=== PATIENT | female | born 1990 | race Caucasian/White ===

== ENCOUNTER 2017-09-08 12:08 | Outpatient (CLI) | payer OTHER ==
[2017-09-08 14:13] LABS: ADD MAN DIFF? NO
[2017-09-08 14:15] LABS: BASOPHILS % 0.1 % (0.0-2.0); EOSINOPHILS % 0.2 % (0.0-7.0); HEMOGLOBIN 11.9 g/dl (12.0-16.0); LYMPHOCYTES % 11.6 % (15.0-51.0); MEAN CORPUSCULAR HEMOGLOBIN 34.6 pg (29.0-33.0); MEAN CORPUSCULAR HGB CONC 36.1 g/dl (32.0-37.0); MEAN CORPUSCULAR VOLUME 95.9 fl (82.0-101.0); MONOCYTE # 0.6 10^3/ul (0.3-0.9); MONOCYTES % 6.5 % (0.0-11.0); NEUTROPHIL # 7.2 10^3/ul (1.6-7.5); NEUTROPHILS % 80.6 % (39.0-77.0); PLATELET COUNT 194 10^3/UL (140-415); RED BLOOD COUNT 3.44 10^6/ul (4.20-5.40); RED CELL DISTRIBUTION WIDTH 13.2 % (11.5-14.5)
[2017-09-08 14:15] LABS: WHITE BLOOD COUNT 8.9 10^3/ul (4.8-10.8)
[2017-09-08 14:55] LABS: ADD UMIC NO; UR ASCORBIC ACID NEGATIVE (NEGATIVE); UR BILIRUBIN (Dip) NEGATIVE (NEGATIVE); UR BLOOD (Dip) NEGATIVE (NEGATIVE); UR CLARITY SLIGHTLY CLOUDY (CLEAR); UR COLOR YELLOW (YELLOW); UR GLUCOSE (Dip) NEGATIVE (NEGATIVE); UR KETONES (Dip) NEGATIVE (NEGATIVE); UR LEUKOCYTE ESTERASE (Dip) NEGATIVE Leu/ul (NEGATIVE); UR NITRITE (Dip) NEGATIVE (NEGATIVE); UR RBC 0 /HPF (0-5); UR SPECIFIC GRAVITY (Dip) 1.013 (1.003-1.030); UR TOTAL PROTEIN (Dip) NEGATIVE (NEGATIVE); UR UROBILINOGEN (Dip) NEGATIVE (NEGATIVE); UR WBC 1 /HPF (0-5)
[2017-09-08 15:11] LABS: RUPTURE FETAL MEMBRANES NEGATIVE (NEGATIVE)
== END 2017-09-08 15:43 | disposition home or self-care (01) ==
LOC: OBT 12:08 → L-D 12:09 → OBT 15:43
DX: O26.893 Other specified pregnancy related conditions, third trimester (principal); Z3A.36 36 weeks gestation of pregnancy
CPT/HCPCS: 76818; 81001; 81003; 84112; 85025; 87086

== ENCOUNTER 2017-09-23 16:42 | Outpatient (CLI) | payer OTHER | END 2017-09-23 18:35 | disposition home or self-care (01) | LOC: OBT 16:42 → L-D 16:43 → OBT 18:35 | DX: O41.03X0 Oligohydramnios, third trimester, not applicable or unspecified (principal); Z3A.38 38 weeks gestation of pregnancy | CPT/HCPCS: 76818 ==

== ENCOUNTER 2017-09-27 05:57 | Inpatient (IN) | payer OTHER ==
[2017-09-27] MEDS ORDERED: CARBOPROST 250 MCG INJ IM ×2 (06:30→15:30)
[2017-09-27] MEDS ORDERED: MISOPROSTOL 200 MCG TAB PR ×2 (06:30→15:30)
[2017-09-27] MEDS ORDERED: OXYTOCIN 30 UNITS/LR 500 ML IV ×2 (06:30→15:30)
[2017-09-27] MEDS ORDERED: METHYLERGONOVINE 0.2 MG INJ IM ×2 (06:30→15:30)
[2017-09-27 06:48] LABS: ADD MAN DIFF? NO
[2017-09-27 06:57] LABS: BASOPHILS % 0.2 % (0.0-2.0); EOSINOPHILS % 0.3 % (0.0-7.0); HEMATOCRIT 36.1 % (37.0-47.0); HEMOGLOBIN 12.7 g/dl (12.0-16.0); LYMPHOCYTES # 1.2 10^3/ul (0.8-2.9); MEAN CORPUSCULAR HEMOGLOBIN 34.5 pg (29.0-33.0); MEAN CORPUSCULAR HGB CONC 35.2 g/dl (32.0-37.0); MEAN CORPUSCULAR VOLUME 98.1 fl (82.0-101.0); MEAN PLATELET VOLUME 11.1 fl (7.4-10.4); MONOCYTE # 0.6 10^3/ul (0.3-0.9); MONOCYTES % 6.8 % (0.0-11.0); NEUTROPHIL # 6.7 10^3/ul (1.6-7.5); NEUTROPHILS % 77.8 % (39.0-77.0); PLATELET COUNT 205 10^3/UL (140-415); RED BLOOD COUNT 3.68 10^6/ul (4.20-5.40); RED CELL DISTRIBUTION WIDTH 13.1 % (11.5-14.5)
[2017-09-27 06:57] LABS: WHITE BLOOD COUNT 8.6 10^3/ul (4.8-10.8)
[2017-09-27 07:20] LABS: INR 1.09; PROTIME 14.3 Sec (11.9-14.9); PT RATIO 1.1
[2017-09-27 07:21] LABS: PARTIAL THROMBOPLASTIN TIME 31.4 Sec (25.0-35.0)
[2017-09-27 07:47] LABS: HEPATITIS B SURFACE ANTIGEN NEGATIVE (NEGATIVE)
[2017-09-27] MEDS ORDERED: BUPIVACAINE 0.75%/DEXT (SPINAL) 2 ML INJ (07:49)
[2017-09-27] MEDS ORDERED: morphine SULFATE/PF (10 MG/10 ML) INJ (07:49)
[2017-09-27] MEDS ORDERED: EPHEDrine SULFATE 50 MG/5 ML SYG (07:51)
[2017-09-27] MEDS: CEFAZOLIN 2 GM/50 ML (PMX) 50 ML IV (07:56)
[2017-09-27] MEDS: CITRIC ACID/SODIUM CITRATE 15 ML CUP PO ×2 (07:57→08:00)
[2017-09-27] MEDS: LACTATED RINGER'S 1,000 ML IV ×6 (07:59→23:03)
[2017-09-27] MEDS ORDERED: LIDOCAINE 100 MG SYRINGE (08:26)
[2017-09-27] MEDS ORDERED: ONDANSETRON 4 MG INJ (08:26)
[2017-09-27] MEDS ORDERED: OXYTOCIN 10 UNIT INJ ×3 (08:38→09:03)
[2017-09-27] MEDS ORDERED: MIDAZOLAM 1 MG/ML 2 ML INJ ×2 (08:40→09:06)
[2017-09-27] MEDS ORDERED: FAMOTIDINE 20 MG INJ (09:00)
[2017-09-27] MEDS ORDERED: DEXAMETHASONE 4 MG/ML 1 ML INJ (09:01)
[2017-09-27] MEDS ORDERED: KETOROLAC 30 MG INJ (09:46)
[2017-09-27] MEDS ORDERED: CEFAZOLIN 1 GM INJ (09:47)
[2017-09-27] MEDS: OXYTOCIN 30 UNITS/LR 500 ML IV ×2 (11:04→18:00)
[2017-09-27 14:51] LABS: RAPID PLASMA REAGIN NONREACTIVE (NR)
[2017-09-27] MEDS ORDERED: KETOROLAC 30 MG INJ IV (15:00)
[2017-09-27] MEDS ORDERED: ATROPINE 1 MG/10 ML SYRINGE IV (15:00)
[2017-09-27] MEDS ORDERED: ONDANSETRON 4 MG INJ IV ×3 (15:00→15:30)
[2017-09-27] MEDS ORDERED: DIPHENHYDRAMINE 50 MG INJ IV ×3 (15:00→15:30)
[2017-09-27] MEDS ORDERED: NALBUPHINE HCL (10 MG/1 ML) INJ IV (15:00)
[2017-09-27] MEDS ORDERED: MEPERIDINE 25 MG INJ IV (15:00)
[2017-09-27] MEDS ORDERED: ZOLPIDEM 5 MG TAB PO ×2 (15:00→15:30)
[2017-09-27] MEDS ORDERED: MIDAZOLAM 1 MG/ML 2 ML INJ IV (15:00)
[2017-09-27] MEDS ORDERED: HYDROmorphONE 0.5 MG/0.5 ML SYG IV ×2 (15:00)
[2017-09-27] MEDS ORDERED: TRIMETHOBENZAMIDE 100 MG/ML VIAL IM ×2 (15:00)
[2017-09-27] MEDS ORDERED: NALOXONE (0.4 MG/ML) INJ IV (15:00)
[2017-09-27] MEDS ORDERED: EPHEDrine SULFATE 50 MG/5 ML SYG IV (15:00)
[2017-09-27] MEDS: IBUPROFEN 600 MG TAB PO (18:00)
[2017-09-27] MEDS: SENNA/DOCUSATE NA (8.6MG/50MG) TAB PO (21:00)
[2017-09-28] MEDS: IBUPROFEN 600 MG TAB PO ×4 (00:06→17:34)
[2017-09-28] MEDS: LACTATED RINGER'S 1,000 ML IV (06:39)
[2017-09-28 08:32] LABS: ADD MAN DIFF? NO
[2017-09-28 08:41] LABS: BASOPHILS % 0.2 % (0.0-2.0); EOSINOPHILS % 0.3 % (0.0-7.0); HEMATOCRIT 26.8 % (37.0-47.0); HEMOGLOBIN 9.5 g/dl (12.0-16.0); LYMPHOCYTES # 1.4 10^3/ul (0.8-2.9); LYMPHOCYTES % 11.3 % (15.0-51.0); MEAN CORPUSCULAR HEMOGLOBIN 35.2 pg (29.0-33.0); MEAN CORPUSCULAR HGB CONC 35.4 g/dl (32.0-37.0); MEAN CORPUSCULAR VOLUME 99.3 fl (82.0-101.0); MEAN PLATELET VOLUME 11.2 fl (7.4-10.4); MONOCYTE # 0.8 10^3/ul (0.3-0.9); MONOCYTES % 6.8 % (0.0-11.0); NEUTROPHIL # 9.6 10^3/ul (1.6-7.5); NEUTROPHILS % 80.6 % (39.0-77.0); PLATELET COUNT 149 10^3/UL (140-415); RED CELL DISTRIBUTION WIDTH 13.3 % (11.5-14.5)
[2017-09-28 08:41] LABS: WHITE BLOOD COUNT 11.9 10^3/ul (4.8-10.8)
[2017-09-28] MEDS: SENNA/DOCUSATE NA (8.6MG/50MG) TAB PO ×2 (08:50→21:55)
[2017-09-28] MEDS: OXYCODONE/ACETAMINOPHEN (5/325) TAB PO ×2 (10:40→18:44)
[2017-09-29] MEDS: IBUPROFEN 600 MG TAB PO ×4 (00:21→17:16)
[2017-09-29] MEDS: OXYCODONE/ACETAMINOPHEN (5/325) TAB PO ×5 (00:25→18:08)
[2017-09-29] MEDS: SENNA/DOCUSATE NA (8.6MG/50MG) TAB PO ×2 (09:46→22:44)
[2017-09-30] MEDS: IBUPROFEN 600 MG TAB PO ×5 (00:36→23:49)
[2017-09-30] MEDS: OXYCODONE/ACETAMINOPHEN (5/325) TAB PO ×5 (00:44→16:43)
[2017-09-30] MEDS: DIPHTH/TET/ACEL PERTUSS (ADULT) 0.5 ML VIAL IM* (09:00)
[2017-09-30] MEDS: SENNA/DOCUSATE NA (8.6MG/50MG) TAB PO ×2 (10:05→20:39)
[2017-09-30] MEDS: ONDANSETRON (ODT) 4 MG TAB ODT (22:43)
[2017-09-30] MEDS: NA PHOSPHATE/BIPHOS 133 ML ENEMA PR (22:43)
[2017-10-01] MEDS: OXYCODONE/ACETAMINOPHEN (5/325) TAB PO ×3 (00:55→11:32)
[2017-10-01] MEDS: IBUPROFEN 600 MG TAB PO ×2 (05:53→12:00)
[2017-10-01] MEDS: SENNA/DOCUSATE NA (8.6MG/50MG) TAB PO (09:57)
[2017-10-01] MEDS: LANOLIN 7 GM TUBE TOP (13:56)
== END 2017-10-01 14:50 | disposition home or self-care (01) | DRG 766 ==
LOC: L-D 05:57 → PP1 14:32
PROVIDERS: Obstetrics & Gynecology
PROC: 10D00Z1 Extraction of Products of Conception, Low, Open Approach (ICD-10-PCS; principal; 2017-09-27 07:30)
DX: O34.211 Maternal care for low transverse scar from previous cesarean delivery (principal); O75.89 Other specified complications of labor and delivery; Z3A.40 40 weeks gestation of pregnancy; Z37.0 Single live birth
CPT/HCPCS: 85025; 85610; 85730; 86592; 86850; 86900; 86901; 87340; 94760; 99464

== ENCOUNTER 2017-10-04 20:48 | Emergency (ER) | payer OTHER | END 2017-10-04 23:11 | disposition home or self-care (01) | LOC: FTE 23:11 | DX: B02.9 Zoster without complications (principal) | CPT/HCPCS: 99284; Z7502 ==

== ENCOUNTER 2018-03-03 18:55 | Emergency (ER) | payer OTHER | END 2018-03-03 19:43 | disposition home or self-care (01) | LOC: FTE 18:55 | DX: Z48.01 Encounter for change or removal of surgical wound dressing (principal) | CPT/HCPCS: 99283; Z7502 ==

== ENCOUNTER 2018-06-11 13:27 | Emergency (ER) | payer OTHER | END 2018-06-11 15:38 | disposition home or self-care (01) | LOC: FTE 13:27 | DX: S29.011A Strain of muscle and tendon of front wall of thorax, initial encounter (principal); R05 Cough; X58.XXXA Exposure to other specified factors, initial encounter; Y92.9 Unspecified place or not applicable | CPT/HCPCS: 71046; 99283-25 ==

== ENCOUNTER 2018-06-22 14:43 | Emergency (ER) | payer OTHER ==
[2018-06-22] MEDS: SOD CHLORIDE 0.9% 1,000 ML IV (18:08)
[2018-06-22] MEDS: ONDANSETRON 4 MG INJ IV (18:13)
[2018-06-22] MEDS: ACETAMINOPHEN 325 MG TAB PO (18:13)
[2018-06-22 18:21] LABS: ADD MAN DIFF? NO
[2018-06-22 18:22] LABS: ABNORMAL IP MESSAGE 1; BASOPHILS % 0.2 % (0.0-2.0); HEMATOCRIT 44.2 % (37.0-47.0); HEMOGLOBIN 14.7 g/dl (12.0-16.0); LYMPHOCYTES # 0.4 10^3/ul (0.8-2.9); LYMPHOCYTES % 3.5 % (15.0-51.0); MEAN CORPUSCULAR HEMOGLOBIN 31.1 pg (29.0-33.0); MEAN CORPUSCULAR HGB CONC 33.3 g/dl (32.0-37.0); MEAN CORPUSCULAR VOLUME 93.4 fl (82.0-101.0); MEAN PLATELET VOLUME 10.5 fl (7.4-10.4); MONOCYTE # 0.4 10^3/ul (0.3-0.9); MONOCYTES % 3.7 % (0.0-11.0); NEUTROPHIL # 10.4 10^3/ul (1.6-7.5); NEUTROPHILS % 92.2 % (39.0-77.0); PLATELET COUNT 269 10^3/UL (140-415); RED BLOOD COUNT 4.73 10^6/ul (4.20-5.40); RED CELL DISTRIBUTION WIDTH 11.9 % (11.5-14.5)
[2018-06-22 18:22] LABS: WHITE BLOOD COUNT 11.3 10^3/ul (4.8-10.8)
[2018-06-22 18:31] LABS: POSITIVE DIFF @See below
[2018-06-22] MEDS: KETOROLAC 30 MG INJ IV (18:37)
[2018-06-22 18:40] LABS: ALANINE AMINOTRANSFERASE 34 IU/L (13-69); ALBUMIN 4.9 g/dl (3.3-4.9); ALBUMIN/GLOBULIN RATIO 1.48; ALKALINE PHOSPHATASE 107 IU/L (42-121); ANION GAP 14 (5-13); ASPARTATE AMINO TRANSFERASE 42 IU/L (15-46); BILIRUBIN,INDIRECT 0.9 mg/dl (0-1.1); BILIRUBIN,TOTAL 0.9 mg/dl (0.2-1.3); BLOOD UREA NITROGEN 12 mg/dl (7-20); CALCIUM 9.5 mg/dl (8.4-10.2); CARBON DIOXIDE 20 mmol/L (21-31); CHLORIDE 104 mmol/L (97-110); Estimated GFR > 60 mL/min (>60); GLUCOSE 111 mg/dl (70-220); LIPASE 23 U/L (23-300); POTASSIUM 4.1 mmol/L (3.5-5.1); SODIUM 138 mmol/L (135-144); TOTAL PROTEIN 8.2 g/dl (6.1-8.1)
[2018-06-22 18:43] LABS: ADD UMIC NO; UR ASCORBIC ACID NEGATIVE (NEGATIVE); UR BILIRUBIN (Dip) NEGATIVE (NEGATIVE); UR BLOOD (Dip) NEGATIVE (NEGATIVE); UR CLARITY CLEAR (CLEAR); UR COLOR YELLOW (YELLOW); UR GLUCOSE (Dip) 1+ mg/dL (NEGATIVE); UR KETONES (Dip) 1+ mg/dL (NEGATIVE); UR LEUKOCYTE ESTERASE (Dip) NEGATIVE Leu/ul (NEGATIVE); UR NITRITE (Dip) NEGATIVE (NEGATIVE); UR SPECIFIC GRAVITY (Dip) 1.024 (1.003-1.030); UR TOTAL PROTEIN (Dip) NEGATIVE (NEGATIVE); UR UROBILINOGEN (Dip) NEGATIVE (NEGATIVE)
== END 2018-06-22 19:20 | disposition home or self-care (01) ==
LOC: FTE 14:43
DX: R11.10 Vomiting, unspecified (principal); R50.9 Fever, unspecified
CPT/HCPCS: 36415; 71045; 80053; 81003; 81025; 83690; 85025; 96374; 96375; 99284-25